=== PATIENT | female | born 1980 | race Caucasian/White ===

== ENCOUNTER 2024-05-06 09:09 | Day surgery (SDC) | payer OTHER ==
[2024-05-06] MEDS ORDERED: DIPRIVAN 200 MG/20 ML IV ONE (11:06)
--- NOTE | 2024-05-06 11:59 | XRAY ---
Indication: Right C2-C4 MBB. Intraoperative fluoroscopy provided for 19 seconds. 2 digital spot images submitted for interpretation demonstrates posterior needle tips projecting over the expected right C2-C4 nerve roots. Correlate with intraoperative findings/report.
[2024-05-06] MEDS ORDERED: Lactated Ringers 1,000 ML IV ONE (12:08)
--- NOTE | 2024-05-06 13:11 | XRAY ---
19 seconds of fluoroscopy was used in surgery for a right C2-C4 MBB.
== END 2024-05-06 11:35 | disposition home or self-care (01) ==
LOC: SDC-PAIN 09:09
PROVIDERS: ATTEND Psychiatry & Neurology Pain Medicine
DX: M47.812 Spondylosis without myelopathy or radiculopathy, cervical region (principal); E11.9 Type 2 diabetes mellitus without complications
CPT/HCPCS: 64490; 64491; 72040; 77002; 82947; J2704

== ENCOUNTER 2024-08-19 09:35 | Day surgery (SDC) | payer OTHER ==
[2024-08-19] MEDS ORDERED: Decadron 4 MG INJ IV ONE (09:36)
[2024-08-19] MEDS ORDERED: Xylocaine-Mpf 2% 5 Ml Vial IJ ONE (09:36)
[2024-08-19] MEDS ORDERED: DIPRIVAN 200 MG/20 ML IV ONE (11:50)
--- NOTE | 2024-08-19 13:32 | XRAY ---
Indication: Left C2-C4 MBB. Intraoperative fluoroscopy provided for 17 seconds. 2 digital spot image submitted for interpretation demonstrates posterior needle tips projecting over the expected left C2-C4 nerve roots. Correlate with intraoperative findings/report.
--- NOTE | 2024-08-19 14:12 | XRAY ---
17 seconds of fluoroscopy was used in surgery for a left C2-C4 MBB.
== END 2024-08-19 12:22 | disposition home or self-care (01) ==
LOC: SDC-PAIN 09:35
PROVIDERS: ATTEND Psychiatry & Neurology Pain Medicine
DX: M47.812 Spondylosis without myelopathy or radiculopathy, cervical region (principal); E11.9 Type 2 diabetes mellitus without complications
CPT/HCPCS: 64490; 64491; 72040; 77002; 82947; J1100; J2704

== ENCOUNTER 2024-09-30 09:33 | Day surgery (SDC) | payer OTHER ==
[2024-09-30] MEDS ORDERED: Decadron 4 MG INJ IV ONE (09:34)
[2024-09-30] MEDS ORDERED: BUPIVACAINE 0.5% VIAL IJ ONE (09:34)
[2024-09-30] MEDS ORDERED: DIPRIVAN 200 MG/20 ML IV ONE (11:54)
--- NOTE | 2024-09-30 18:48 | XRAY ---
Indication: Left C2-C4 MBB. Intraoperative fluoroscopy provided for 14 seconds. 2 digital spot image submitted for interpretation demonstrates posterior needle tips projecting over the expected left C2-C4 nerve roots. Correlate with intraoperative findings/report.
--- NOTE | 2024-09-30 19:22 | XRAY ---
14 seconds of fluoroscopy was used in surgery for a left C2-C4 MBB.
== END 2024-09-30 12:17 | disposition home or self-care (01) ==
LOC: SDC-PAIN 09:33
PROVIDERS: ATTEND Psychiatry & Neurology Pain Medicine
DX: M47.812 Spondylosis without myelopathy or radiculopathy, cervical region (principal); E11.9 Type 2 diabetes mellitus without complications
CPT/HCPCS: 64490; 64491; 72040; 77002; 82947; J1100; J2704